=== PATIENT | male | born 1955 | race Caucasian/White ===

== ENCOUNTER 2024-09-06 14:43 | Emergency (ER) | payer OTHER, SELFPAY ==
[2024-09-06 14:50] VITALS: BP 170/110
--- NOTE | 2024-09-06 16:29 | ED.GENMED ---
History of Present Illness
<Kandace Templeton PA-C - Last Filed: 09/06/24 22:22>
General
Chief Complaint: DVT/Possible Blood Clot
Source: patient
Exam Limitations: none
Time Seen by Provider: 09/06/24 16:09
Nursing documentation reviewed up to this point in time: agreed with
History of Present Illness
History of Present Illness:
69-year-old male with past medical history of DVT presents emergency department today with concerns of left calf cramping and swelling starting this morning. Patient states that 8 days ago, he drove straight here from [place] only stopping use the
bathroom. Patient did not have any symptoms until today. Patient denies any shortness of breath or chest pain. Patient denies any redness in his leg. Patient denies any difficulty ambulating. Patient denies any trauma to the leg, denies any
recent falls. He had a DVT in the past which was provoked by an injury.
Past History
<Kandace Templeton PA-C - Last Filed: 09/06/24 22:22>
Past History
ED Past Medical History: Other (DVT, PE)
ED Past Surgical History: None
Review of Systems
Njlt;EVA Haines Last Filed: 09/06/24 22:22>
Review of Systems
All Other Systems: ROS reviewed and negative except as documented in HPI and ROS
Phy Exam
<Kandace Templeton PA-C - Last Filed: 09/06/24 22:22>
Physical Exam
Physical Exam:
General: Patient is well appearing and in no acute distress; non-toxic
Skin: Warm and dry, no rashes or lesions
Head: Normocephalic, atraumatic
Eyes: Sclera non-icteric. EOMs intact.
Cardiac: Regular rate and rhythm, no murmur
Peripheral Vascular: 2+ dorsalis pedis and posterior tibial pulses
Pulm: Normal respiratory effort, no wheezes, rales, rhonchi
Musculoskeletal: Tenderness palpation noted over the left posterior calf
Neuro: CN II-XII intact, no focal neurologic deficits.
Psychiatric: Appropriate mood and affect.
Course
<Kandace Templeton PA-C - Last Filed: 09/06/24 22:22>
Orders/Labs/Results
Orders:
Orders
09/06/24 14:46
US Legs, Left [US Periph Venous LOWER Ext LT] Urgent
Comment:
Reason For Exam: swelling/pain/previous DVT
09/06/24 18:27
Apixaban [Eliquis] 10 mg PO BID ONE
Vital Signs
Initial and Last Documented VS:
Initial Vital Signs
Temp Pulse Resp BP Pulse Ox
98.2 F 105 16 170/110 98
09/06/24 14:50 09/06/24 14:50 09/06/24 14:50 09/06/24 14:50 09/06/24 14:50
Last Documented Vital Signs
Temp Pulse Resp BP Pulse Ox
98.2 F 78 18 135/74 98
09/06/24 14:50 09/06/24 18:58 09/06/24 18:58 09/06/24 18:58 09/06/24 18:58
<Avery Mcgee DO - Last Filed: 09/06/24 22:06>
Orders/Labs/Results
Orders:
Orders
09/06/24 14:46
US Legs, Left [US Periph Venous LOWER Ext LT] Urgent
Comment:
Reason For Exam: swelling/pain/previous DVT
09/06/24 18:27
Apixaban [Eliquis] 10 mg PO BID ONE
Vital Signs
Initial and Last Documented VS:
Initial Vital Signs
Temp Pulse Resp BP Pulse Ox
98.2 F 105 16 170/110 98
09/06/24 14:50 09/06/24 14:50 09/06/24 14:50 09/06/24 14:50 09/06/24 14:50
Last Documented Vital Signs
Temp Pulse Resp BP Pulse Ox
98.2 F 78 18 135/74 98
09/06/24 14:50 09/06/24 18:58 09/06/24 18:58 09/06/24 18:58 09/06/24 18:58
<Kandace Templeton PA-C - Last Filed: 09/06/24 22:22>
MDM/Problems Addressed
Differential Diagnosis Includes:
DVT, muscle strain/tear, contusion
MDM/Problems Addressed:
69-year-old male with past medical history of provoked DVT presents emergency department today with concerns of leg cramping and pain. Denies any shortness of breath. He was found to have a occlusive thrombus in the left peroneal and to lesser
extent the left posterior tibial veins. Patient was given a dose of Eliquis to start and he will be given prescription for Eliquis. 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 Patient states that he is going a trip for 2 months in a few
days. I stressed with patient the importance of following up with his platen drier operator before going on his trip. Patient expressed understanding. Patient stable for discharge
Chronic conditions affecting care:
hx of dvt
<Kandace Templeton PA-C - Last Filed: 09/06/24 22:22>
*Pulse Oximetry
Patient hypoxic: no
*Critical Care Note
Total Time (30-74mins, 75-104mins- exclusive of procedures): Not Applicable
Data Reviewed
Review of Other/Old Records Reveals: Records
<Kandace Templeton PA-C - Last Filed: 09/06/24 22:22>
Patient Management
Escalation/DeEscalation of care consider admission/obs:
admit not indicated patient stable for discharge
ED Attending Note
<Kandace eTmpleton PA-C - Last Filed: 09/06/24 22:22>
-
Portions of this chart may have been created with voice recognition software.� Occasional wrong word or��sound alike� substitutions may have occurred due to the inherent limitations of voice recognition software.
<Avery Mcgee DO - Last Filed: 09/06/24 22:06>
ED Attending Note
Patient seen and examined by attending physician: Yes
I performed a history and physical exam of patient and discussed management with resident, I reviewed resident's note and agree with documented findings and plan of care.: Yes
ED Attending Note:
I have reviewed and agree with history and treatment plan by Kandace Templeton. My exam revealed 69-year-old male in no acute distress. Denies chest pain or shortness of breath. Occlusive thrombus left posterior tibial and peroneal veins. Will
restart Eliquis. Do not suspect PE.
Discharge Plan
Departure
Patient Disposition: Home (Routine Discharge)
Date of Disposition: 09/06/24
Time of Disposition: 18:07
Patient with high blood pressure during this ER visit?: Yes
Condition: Good
Discharge Problem:
Deep venous thrombosis
Instructions: Deep Vein Thrombosis (Blood Clots in the Legs) (DC), BLOOD PRESSURE
Prescriptions:
New
Eliquis DVT-PE Treat 30D Start 5 mg (74 tabs) tablets,dose pack
See Rx Instructions .ROUTE .COMPLEX Qty: 74 0RF
Rx Instructions:
orally per package directions
Referrals:
Juan Pedro DO [Family Provider] -
Activity Restrictions/Additional Instructions:
Please follow package instructions please are taking 10 mg twice daily for 7 days followed by 5 mg twice daily.
Please call your platen drier operator's number to schedule a follow up appointment.
PLEASE RETURN EMERGENCY DEPARTMENT SHOULD YOU DEVELOP AN ACUTE WORSENING OF YOUR PAIN, INABILITY AMBULATE, SHORTNESS OF BREATH, SYNCOPAL EPISODES, CHEST PAIN, LIGHTHEADEDNESS, DIZZINESS, OR ANY OTHER SIGNS OR SYMPTOMS WORRISOME TO YOU.
Interventions
Interventions:
*Risk Screen - Suicide Last Done: 09/06/24 14:50
*General Assessment Last Done: 09/06/24 16:35
*Neglect/Abuse Screening Last Done: 09/06/24 14:50
ED- Fall Risk Assessment Last Done: 09/06/24 16:36
*ED COVID-19 Vaccine History Last Done: 09/06/24 16:35
*Nursing Disposition Last Done: 09/06/24 18:58
ED- Cardiac Assessment Last Done: 09/06/24 16:36
ED- Pulmonary Assessment Last Done: 09/06/24 16:36
ED-Peripheral Vascular Assessment Last Done: 09/06/24 18:58
ED-Skin Assessment Last Done: 09/06/24 16:36
Discharge Date and Time
Discharge Date/Time: 09/06/24 19:00
Print Language: FILIPINO
[2024-09-06] MEDS: ELIQUIS 10 MG PO (18:30)
[2024-09-06 18:58] VITALS: BP 135/74
== END 2024-09-06 19:00 | disposition home or self-care (01) ==
LOC: EMR 14:43
PROVIDERS: EMERGENCY PHYSICIAN Emergency Medicine; FAMILY PHYSICIAN Family Medicine
DX: I82.442 Acute embolism and thrombosis of left tibial vein (principal); I82.452 Acute embolism and thrombosis of left peroneal vein
CPT/HCPCS: 99284; 93971